=== PATIENT | male | born 1980 | race Caucasian/White ===

== ENCOUNTER 2018-12-31 22:45 | Emergency (ER) | payer BC ==
[2018-12-31] MEDS ORDERED: DIAZEPAM 5 MG TABLET ONE (23:47)
[2018-12-31] MEDS ORDERED: KETOROLAC 30 MG/ML INJ ONE (23:47)
[2018-12-31] MEDS ORDERED: HYDROMORPHONE HCL 1 MG/ML INJ ONE (23:47)
[2018-12-31] MEDS ORDERED: NA CHLORIDE 0.9% 1,000 ML ONE (23:48)
[2018-12-31] MEDS ORDERED: ONDANSETRON 4 MG/2 ML VIAL ONE (23:48)
[2019-01-01 00:28] LABS: Absolute Monocytes 1.2 K/uL (0.1-1.3); Absolute Neutrophil 6.5 K/uL (1.8-8.0); Basophils % 1.1 % (0-1.3); Eosinophils % 1.4 % (0-4.4); Hematocrit 49.6 % (39.6-49.0); Lymphocytes % 27.4 % (15.3-44.8); RBC Red Blood Cell Count 5.82 M/uL (4.33-5.43)
[2019-01-01 00:43] LABS: Albumin 3.8 g/dL (3.4-5.0); Bilirubin Total 1.5 mg/dL (0.2-1.0); Potassium 3.8 mmol/L (3.5-5.1); Protein, Total 8.4 g/dL (6.4-8.2)
--- NOTE | 2019-01-01 00:59 | EDPHYS ---
Physician Documentation [facility] Name: Shemar Valladares Age: 38 yrs Sex: Male : 1980 Arrival Date: 12/31/2018 Time: 22:50 Bed 5 Private MD: John Mckeon ED Physician Angel Wolf HPI: 12/31 23:26 This 38 yrs old Male presents to ER via Ambulatory with complaints of Hip flavia Pain, High Blood Pressure, High Blood Sugar. 23:26 The patient or guardian reports decreased range of motion, pain. that [place]. The complaints affect the left hip. Onset: The symptoms/episode began/occurred 3 day(s) ago. Modifying factors: The symptoms are alleviated by remaining still, the symptoms are aggravated by any movement. Associated signs and symptoms: Loss of consciousness: the patient experienced no loss of consciousness. Severity of symptoms: At their worst the symptoms were moderate, in the emergency department the symptoms are unchanged. The patient has not experienced similar symptoms in the past. Historical: - Allergies: 23:13 No Known Allergies; tl2 - Home Meds: 23:13 cyclobenzaprine 10 mg Oral tab 1 tab 2 times per day [Active]; diazepam 5 mg Oral tab 2 tl2 tabs 2 times per day [Active]; lisinopril 20 mg Oral tab 1 tab once daily [Active]; metformin 500 mg Oral tab 2 tabs 2 times per day [Active]; - PMHx: 23:13 Diabetes - NIDDM; Hypertension; tl2 - PSHx: 23:13 Appendectomy; tl2 - Immunization history:: Adult Immunizations up to date. - Social history:: Smoking status: Patient/guardian denies using tobacco. - Ebola Screening: : No symptoms or risks identified at this time. - Family history:: not pertinent. ROS: 23:26 Constitutional: Negative for fever, chills, and weight loss, Eyes: Negative for injury, flavia pain, redness, and discharge, ENT: Negative for injury, pain, and discharge, Neck: Negative for injury, pain, and swelling, Cardiovascular: Negative for chest pain, palpitations, and edema, Respiratory: Negative for shortness of breath, cough, wheezing, and pleuritic chest pain, Abdomen/GI: Negative for abdominal pain, nausea, vomiting, diarrhea, and constipation, : Negative for injury, bleeding, discharge, and swelling, Skin: Negative for injury, rash, and discoloration, Neuro: Negative for headache, weakness, numbness, tingling, and seizure, Psych: Negative for depression, anxiety, suicide ideation, homicidal ideation, and hallucinations, Allergy/Immunology: Negative for hives, rash, and allergies, Endocrine: Negative for neck swelling, polydipsia, polyuria, polyphagia, and marked weight changes, Hematologic/Lymphatic: Negative for swollen nodes, abnormal bleeding, and unusual bruising. 23:26 Back: Positive for decreased range of motion, pain with movement, radiated pain. Exam: 23:26 Constitutional: This is a well developed, well nourished patient who is awake, alert, flavia and in no acute distress. Head/Face: Normocephalic, atraumatic. Eyes: Pupils equal round and reactive to light, extra-ocular motions intact. Lids and lashes normal. Conjunctiva and sclera are non-icteric and not injected. Cornea within normal limits. Periorbital areas with no swelling, redness, or edema. ENT: Nares patent. No nasal discharge, no septal abnormalities noted. Tympanic membranes are normal and external auditory canals are clear. Oropharynx with no redness, swelling, or masses, exudates, or evidence of obstruction, uvula midline. Mucous membranes moist. Neck: Trachea midline, no thyromegaly or masses palpated, and no cervical lymphadenopathy. Supple, full range of motion without nuchal rigidity, or vertebral point tenderness. No Meningismus. Chest/axilla: Normal chest wall appearance and motion. Nontender with no deformity. No lesions are appreciated. Cardiovascular: Regular rate and rhythm with a normal S1 and S2. No gallops, murmurs, or rubs. Normal PMI, no JVD. No pulse deficits. Respiratory: Lungs have equal breath sounds bilaterally, clear to auscultation and percussion. No rales, rhonchi or wheezes noted. No increased work of breathing, no retractions or nasal flaring. Abdomen/GI: Soft, non-tender, with normal bowel sounds. No distension or tympany. No guarding or rebound. No evidence of tenderness throughout. Male : Normal genitalia with no discharge or lesions. Skin: Warm, dry with normal turgor. Normal color with no rashes, no lesions, and no evidence of cellulitis. MS/ Extremity: Pulses equal, no cyanosis. Neurovascular intact. Full, normal range of motion. Neuro: Awake and alert, GCS 15, oriented to person, place, time, and situation. Cranial nerves II-XII grossly intact. Motor strength 5/5 in all extremities. Sensory grossly intact. Cerebellar exam normal. Normal gait. Psych: Awake, alert, with orientation to person, place and time. Behavior, mood, and affect are within normal limits. 23:26 Back: pain, that is moderate, ROM is painful, normal spinal alignment noted, CVA tenderness, is absent. Vital Signs: 23:13 BP 152 / 72; Pulse 97; Resp 18; Temp 97.4(O); Pulse Ox 98% on R/A; Weight 161.48 kg; tl2 Height 5 ft. 11 in. (180.34 cm); Pain 10/; 01/01 00:32 BP 129 / 81; Pulse 62; Resp 18; Pulse Ox 98% on R/A; tl2 01:45 BP 128 / 69; Pulse 70; Resp 18; Temp 98(O); Pulse Ox 99% on R/A; ea 12/31 23:13 Body Mass Index 49.65 (161.48 kg, 180.34 cm) tl2 MDM: 12/31 23:18 Patient medically screened. [facility] 12/31 23:26 Order name: CBC with Diff; Complete Time: 00:58 [facility] 12/31 23:26 Order name: Comprehensive Metabolic Panel; Complete Time: 00:58 [facility] 12/31 23:26 Order name: Pelvis XRAY [facility] 12/31 23:26 Order name: Hip Left 2 View XRAY [facility] 12/31 23:26 Order name: CT Lumbar Spine Wo Con [facility] Administered Medications: 23:55 Drug: Zofran 4 mg Route: IVP; Site: right antecubital; ea 01/01 00:38 Follow up: Response: No adverse reaction; Pain is decreased ea 12/31 23:55 Drug: Valium 5 mg Route: PO; ea 01/01 00:38 Follow up: Response: No adverse reaction; Pain is decreased ea 12/31 23:58 Drug: Dilaudid 1 mg Route: IVP; Site: right antecubital; ea 01/01 00:38 Follow up: Response: No adverse reaction; Pain is decreased ea 00:03 Drug: TORadol 30 mg Route: IVP; Site: right antecubital; ea 01:00 Follow up: Response: No adverse reaction; Pain is decreased ea 00:21 Drug: NS 0.9% 1000 ml Route: IV; Rate: 1 bolus; Site: right antecubital; ea 01:25 Follow up: Response: No adverse reaction; IV Status: Completed infusion; IV Intake: ea 1000ml 01:24 Drug: Decadron - Dexamethasone 10 mg Route: IVP; Site: right antecubital; ea 01:25 Follow up: Response: No adverse reaction ea Point of Care Testing: Blood Glucose: 12/31 23:13 Blood Glucose: 153 mg/dL; tl2 Ranges: Critical Glucose Levels:Adult <50 mg/dl or >400 mg/dl <40 mg/dl or >180 mg/dl Disposition: 01/01/19 00:59 Discharged to Home. Impression: Sciatica, left side, Obesity, unspecified, Pain in left hip, Essential (primary) hypertension, Type 2 diabetes mellitus, Spondylolysis, lumbar region. - Condition is Stable. - Discharge Instructions: Type 2 Diabetes Mellitus, Diagnosis, Adult, Hypertension, Musculoskeletal Pain, Obesity, Adult, Sciatica, Hypertension, [id number], Type 2 Diabetes Mellitus, Diagnosis, Adult, [id number], Managing Your Hypertension. - Prescriptions for Ibuprofen 600 mg Oral Tablet - take 1 tablet by ORAL route every 6 hours As needed take with food; 30 tablet. Tylenol- Codeine #3 300-30 mg Oral Tablet - take 2 tablet by ORAL route every 6 hours As needed; 30 tablet. Valium 5 mg Oral Tablet - take 1 tablet by ORAL route every 8 hours As needed; 20 tablet. Medrol (Eliseo) 4 mg Oral Tablets, Dose Pack - take 1 tablet by ORAL route as directed - follow package instructions; 1 packet. - Medication Reconciliation Form, Thank You Letter, Antibiotic Education, Prescription Opioid Use, Work release form, Family Work Release form. - Follow up: John Mckeon; When: 2 - 3 days; Reason: Recheck today's complaints, Continuance of care, Re-evaluation by your physician. - Problem is new. - Symptoms have improved. Signatures: Dispatcher [employer] EDAngel Lopez MD MD cha Knox, Taylor, RN RN tl2 Mery Garcia, RN RN ea Corrections: (The following items were deleted from the chart) 01/01 02:06 00:59 01/01/2019 00:59 Discharged to Home. Impression: Sciatica, left side; Obesity, ea unspecified; Pain in left hip; Essential (primary) hypertension; Type 2 diabetes mellitus; Spondylolysis, lumbar region. Condition is Stable. Discharge Instructions: Type 2 Diabetes Mellitus, Diagnosis, Adult, Hypertension, Musculoskeletal Pain, Obesity, Adult, Sciatica, Hypertension, [id number], Type 2 Diabetes Mellitus, Diagnosis, Adult, [id number], Managing Your Hypertension. Prescriptions for Ibuprofen 600 mg Oral Tablet - take 1 tablet by ORAL route every 6 hours As needed take with food; 30 tablet, Tylenol-Codeine #3 300-30 mg Oral Tablet - take 2 tablet by ORAL route every 6 hours As needed; 30 tablet, Valium 5 mg Oral Tablet - take 1 tablet by ORAL route every 8 hours As needed; 20 tablet, Medrol (Eliseo) 4 mg Oral Tablets, Dose Pack - take 1 tablet by ORAL route as directed - follow package instructions; 1 packet. and Forms are Medication Reconciliation Form, Thank You Letter, Antibiotic Education, Prescription Opioid Use. Follow up: John Mckeon; When: 2 - 3 days; Reason: Recheck today's complaints, Continuance of care, Re-evaluation by your physician. Problem is new. Symptoms have improved. flavia
--- NOTE | 2019-01-01 00:59 | ER ---
Nurse's Notes [facility] Name: Shemar Valladares Age: 38 yrs Sex: Male : 1980 Arrival Date: 12/31/2018 Time: 22:50 Bed 5 Private MD: John Mckeon Diagnosis: Sciatica, left side;Obesity, unspecified;Pain in left hip;Essential (primary) hypertension;Type 2 diabetes mellitus;Spondylolysis, lumbar region Presentation: 12/31 23:10 Presenting complaint: Patient states: Thinks he has sciatica pain in the left leg, tl2 radiates to hip. Was seen at [facility] and had xrays done and was prescribed valium. Saw PCP Dr. Fox yesterday. c/o high BP and BGL of 172 this morning. Transition of care: patient was not received from another setting of care. Onset of symptoms was December 31, 2018. Risk Assessment: Do you want to hurt yourself or someone else? Patient reports no desire to harm self or others. Initial Sepsis Screen: Does the patient meet any 2 criteria? No. Patient's initial sepsis screen is negative. Does the patient have a suspected source of infection? No. Patient's initial sepsis screen is negative. Care prior to arrival: None. 23:10 Method Of Arrival: Ambulatory tl2 23:10 Acuity: JOYCE 3 tl2 Triage Assessment: 23:13 General: Appears in no apparent distress. uncomfortable, Behavior is cooperative, tl2 appropriate for age, anxious. Pain: Complains of pain in right leg. Historical: - Allergies: 23:13 No Known Allergies; tl2 - Home Meds: 23:13 cyclobenzaprine 10 mg Oral tab 1 tab 2 times per day [Active]; diazepam 5 mg Oral tab 2 tl2 tabs 2 times per day [Active]; lisinopril 20 mg Oral tab 1 tab once daily [Active]; metformin 500 mg Oral tab 2 tabs 2 times per day [Active]; - PMHx: 23:13 Diabetes - NIDDM; Hypertension; tl2 - PSHx: 23:13 Appendectomy; tl2 - Immunization history:: Adult Immunizations up to date. - Social history:: Smoking status: Patient/guardian denies using tobacco. - Ebola Screening: : No symptoms or risks identified at this time. - Family history:: not pertinent. Screenin:15 Abuse screen: Denies threats or abuse. Nutritional screening: No deficits noted. tl2 Tuberculosis screening: No symptoms or risk factors identified. Fall Risk None identified. Assessment: 01/01 00:18 General: Appears uncomfortable, Behavior is calm, cooperative, appropriate for age. ea Pain: Complains of pain in pelvis and left hip and right leg. Neuro: Level of Consciousness is awake, alert, obeys commands, Oriented to person, place, time, situation. Cardiovascular: Patient's skin is warm and dry. Respiratory: Airway is patent Respiratory effort is even, unlabored, Respiratory pattern is regular, symmetrical. Derm: Skin is pink, warm \T\ dry. 01:55 Reassessment: Patient and/or family updated on plan of care and expected duration. Pain ea level reassessed. Patient is alert, oriented x 3, equal unlabored respirations, skin warm/dry/pink. Discharge instructions given to patient and , verbalized the understanding of instructions. Vital Signs: 12/31 23:13 BP 152 / 72; Pulse 97; Resp 18; Temp 97.4(O); Pulse Ox 98% on R/A; Weight 161.48 kg; tl2 Height 5 ft. 11 in. (180.34 cm); Pain 10/10; 01/01 00:32 BP 129 / 81; Pulse 62; Resp 18; Pulse Ox 98% on R/A; tl2 01:45 BP 128 / 69; Pulse 70; Resp 18; Temp 98(O); Pulse Ox 99% on R/A; ea 12/31 23:13 Body Mass Index 49.65 (161.48 kg, 180.34 cm) tl2 ED Course: 12/31 22:50 Patient arrived in ED. es 22:50 John Mckeon DO is Private Physician. es 23:11 Triage completed. tl2 23:13 Arm band placed on right wrist. tl2 23:15 Patient has correct armband on for positive identification. Placed in gown. Bed in low tl2 position. Call light in reach. Side rails up X 1. Adult w/ patient. 23:18 Angel Wolf MD is Attending Physician. flavia 23:30 Mery Garcia RN is Primary Nurse. ea 23:55 Inserted saline lock: 20 gauge in right antecubital area, using aseptic technique. ea Blood collected. 03 00:05 CT Lumbar Spine Wo Con In Process Unspecified. EDMS 00:10 Pelvis XRAY In Process Unspecified. EDMS 00:10 Hip Left 2 View XRAY In Process Unspecified. EDMS 00:59 John Mckeon DO is Referral Physician. flavia 01:50 IV discontinued, intact, bleeding controlled, No redness/swelling at site. Pressure ea dressing applied. 01:53 No provider procedures requiring assistance completed. ea Administered Medications: 12/31 23:55 Drug: Zofran 4 mg Route: IVP; Site: right antecubital; ea 01/01 00:38 Follow up: Response: No adverse reaction; Pain is decreased ea 12/31 23:55 Drug: Valium 5 mg Route: PO; ea 01/01 00:38 Follow up: Response: No adverse reaction; Pain is decreased ea 12/31 23:58 Drug: Dilaudid 1 mg Route: IVP; Site: right antecubital; ea 01/01 00:38 Follow up: Response: No adverse reaction; Pain is decreased ea 00:03 Drug: TORadol 30 mg Route: IVP; Site: right antecubital; ea 01:00 Follow up: Response: No adverse reaction; Pain is decreased ea 00:21 Drug: NS 0.9% 1000 ml Route: IV; Rate: 1 bolus; Site: right antecubital; ea 01:25 Follow up: Response: No adverse reaction; IV Status: Completed infusion; IV Intake: ea 1000ml 01:24 Drug: Decadron - Dexamethasone 10 mg Route: IVP; Site: right antecubital; ea 01:25 Follow up: Response: No adverse reaction ea Point of Care Testing: Blood Glucose: 12/31 23:13 Blood Glucose: 153 mg/dL; tl2 Ranges: Intake: 01/01 01:25 IV: 1000ml; Total: 1000ml. ea Outcome: 00:59 Discharge ordered by . flavia 01:55 Discharged to home via wheelchair, with significant other. ea 01:55 Condition: improved 01:55 Discharge instructions given to patient, Instructed on discharge instructions, follow up and referral plans. medication usage, Demonstrated understanding of instructions, follow-up care, medications, Prescriptions given X 4. 02:06 Patient left the ED. ea Signatures: Dispatcher [employer] Angel Rodrigues MD MD cha Salyer, Edna es Knox, Taylor RN RN tl2 Mery Garcia RN RN ea
[2019-01-01] MEDS ORDERED: DEXAMETHASONE 4 MG/ML VIAL ONE ×2 (01:17→01:20)
[2019-01-01 02:27] VITALS: BP 128/69; TEMP 98; O2SAT 99
--- NOTE | 2019-01-01 08:23 | RAD REPORT ---
EXAM DESCRIPTION: RAD - Pelvis - 01/01/2019 12:06 am CLINICAL HISTORY: TRAUMA COMPARISON: No comparisons FINDINGS: Mild osteoarthritis is seen in both hips. No fracture, dislocation or AVN.
--- NOTE | 2019-01-01 08:24 | RAD REPORT ---
EXAM DESCRIPTION: RAD - Hip Left 2 View - 01/01/2019 12:06 am CLINICAL HISTORY: PAIN COMPARISON: No comparisons FINDINGS: Mild osteoarthritis affects the left hip. No fracture, dislocation or AVN seen.
--- NOTE | 2019-01-01 14:05 | RAD REPORT ---
EXAM DESCRIPTION: CT spine without contrast CLINICAL HISTORY: 38 years Male PAIN COMPARISON: None TECHNIQUE: Multiplanar imaging through the lumbar spine without contrast. This exam was performed according to our departmental dose-optimization program, which includes automated exposure control, a djustment of the mA and/or kV according to patient size and/or use of iterative reconstruction techni que. FINDINGS: No fracture. No subluxation. Transitional lumbosacral anatomy with sacralization of L5. Disc spaces are preserved. Disc osteophyte complex at L3-4 with suggestion of mild spinal canal narrowing. Smaller similar appearing findings at L4-5. Paraspinal soft tissues are unremarkable. Visualized abdomen demonstrates no acute abnormality. IMPRESSION: No acute fracture or subluxation. L3-4 and L4-5 spondylolysis Transitional lumbosacral anatomy. Electronically signed by: Yves Fernandes DO 01/01/2019 12:14 AM [employer] Due to temporary technical issues with the PACS/Fluency reporting system, reports are being signed by the in house radiologist as a courtesy to ensure prompt reporting. The interpreting radiologist is f ully responsible for the content of the report.
== END 2019-01-01 02:06 | disposition home or self-care (01) ==
LOC: ER 22:45
DX: M54.32 Sciatica, left side (principal); M47.896 Other spondylosis, lumbar region; I10 Essential (primary) hypertension; E11.9 Type 2 diabetes mellitus without complications; E66.9 Obesity, unspecified
CPT/HCPCS: 36415; 72131; 72170; 80053; 82962; 85025; 96361; 96374; 96375; 99284; J1170; J2405; J7030